=== PATIENT | female | born 1995 | race Caucasian/White ===

== ENCOUNTER → 2017-06-08 14:43 | Outpatient (CLI) | payer OTHER | END | disposition home or self-care (01) | LOC: D.US 14:43 | DX: N93.9 Abnormal uterine and vaginal bleeding, unspecified (principal) ==

== ENCOUNTER 2018-01-28 18:04 | Emergency (ER) | payer OTHER ==
[~2018-01-28] VITALS: Ht 154.9 cm; Wt 45.5 kg
[2018-01-28 18:13] VITALS: BP 144/94; Ht 154.9 cm; Wt 45.5 kg
[2018-01-28 18:43] LABS: APPEARANCE CLEAR (CLEAR); BILIRUBIN NEGATIVE (NEGATIVE); COLOR YELLOW (YELLOW); EPITHELIAL CELLS 0-5 /hpf (0-5); GLUCOSE NEGATIVE (NEGATIVE); HCG URINE NEGATIVE (NEGATIVE); KETONE NEGATIVE (NEGATIVE); NITRITE NEGATIVE (NEGATIVE); PROTEIN NEGATIVE (NEGATIVE); RED CELLS - URINE 0-5 /hpf (0-5); SPECIFIC GRAVITY 1.025 (1.005-1.020); UROBILINOGEN NORMAL (NORMAL); WHITE CELLS - URINE NSEEN /hpf (0-5)
[2018-01-28 19:10] LABS: BASOPHILS 0.3 % (0-2); EOSINOPHILS 0.6 % (0-7); HEMATOCRIT 37.4 % (36.0-48.0); HEMOGLOBIN 12.4 g/dL (12-16); IMMATURE GRANULOCYTES 0.1 % (0-5); LYMPHOCYTES 20.6 % (15-50); MCH 26.9 pg (26.0-34.0); MCHC 33.2 g/dL (31.0-37.0); MCV 81.1 fL (80.0-100.0); MEAN PLATELET VOLUME 9.7 fL (7.4-10.4); MONOCYTES 5.6 % (2-11); NEUTROPHILS 72.8 % (40-80); RBC 4.61 10x6/uL (4.00-5.40); RDW 13.3 % (11.5-14.5); WBC 9.4 10x3/uL (4.8-10.8)
[2018-01-28 19:11] LABS: PLATELET COUNT 183 10x3/uL (130-400)
[2018-01-28 19:18] LABS: CARBON DIOXIDE 27.5 mmol/L (21.0-32.0); CHLORIDE - SERUM 105 mmol/L (98-107); POTASSIUM - SERUM 3.7 mmol/L (3.5-5.1); SODIUM 141 mmol/L (136-145)
[2018-01-28 19:50] LABS: ALBUMIN 4.1 g/dL (3.4-5.0); ALKALINE PHOSPHATASE 49 U/L (46-116); ALT (SGPT) 16 U/L (10-68); BILIRUBIN - TOTAL 0.41 mg/dL (0.2-1.3); CALC OSMOLALITY 281 mosm/kg (275-300); CALCIUM 8.8 mg/dL (8.5-10.1); CREATININE - SERUM 0.8 mg/dL (0.6-1.3); GLUCOSE 90 mg/dL (74-106); PROTEIN - SERUM 7.6 g/dL (6.4-8.2); UREA NITROGEN 15 mg/dL (7-18); eGFR NON AFRICAN AMERICAN > 90 mL/min (90-120)
[2018-01-28] MEDS ORDERED: IBUPROFEN800 MG PO (20:00)
== END 2018-01-28 20:22 | disposition home or self-care (01) ==
LOC: D.ER 18:04
PROVIDERS: Emergency Medicine
DX: N94.6 Dysmenorrhea, unspecified (principal); N93.9 Abnormal uterine and vaginal bleeding, unspecified

== ENCOUNTER → 2020-04-25 13:52 | Outpatient (CLI) | payer OTHER ==
[2020-03-16 19:02] VITALS: BMI 20.8
[~2020-04-25 13:52] MED LIST: IBUPROFEN800 MG PO
== END | disposition home or self-care (01) ==
LOC: D.US 13:52
PROVIDERS: ATTEND Student in an Organized Health Care Education/Training Program
DX: I10 Essential (primary) hypertension (principal)

== ENCOUNTER → 2020-05-31 12:46 | Outpatient (CLI) | payer OTHER ==
[2020-03-16 19:02] VITALS: BMI 20.8
--- NOTE | 2020-06-01 17:14 | EC ---
PATIENT:RENEE SINGH DATE OF SERVICE: 05/31/20 SEX: F MEDICAL RECORD: [id number] DATE OF : [birth year] [facility] AGE OF PAT[facility]: 25 ADMISSION DATE: 05/31/20 REFERRING PHYSICIAN: INTERPRETING PHYSICIAN: LORETA APPIAH MD ECHOCARDIOGRAM REPORT ECHO CHARGES 4 ECHO COMPLETE Date: 05/31/20 CLINICAL DIAGNOSIS: PALPITATIONS/HEART MURMUR ECHOCARDIOGRAPHIC MEASUREMENTS (adult normal given) AC root (d.<3.7cm) 2.6 cm LV Septum d (<1.2 cm> 0.7 cm Valve Excursion 1.1 cm LV Septum (systole) 0.9 cm Left Atria (s.<4.0cm> 2.9 cm LVPW d(<1.2cm) 0.6 cm RV (d.<2.3cm) 3.5 cm LVPW (sytole) 1.8 cm LV diastole(<5.6CM) 4.7 cm MV E-F(>70mm/sec) cm LV systole 3.5 cm LVOT Diameter 1.7 cm MV exc.(>10mm) 1.3 cm Est.ejection fraction (50-75%) % DOPPLER: LVIT cm/sec A 69.0 cm/sec E 92.0 cm/sec LA cm/sec RVSP 25 mmHg LVOT 88 cm/sec AOP1/2T m/s Asc. Ao 118 cm/sec RVOT 93 cm/sec RA cm/sec PA 104 cm/sec AV Gradient Peak 5.53 mmHg AV Mean 2.91 mmHg AV Area 2.1 cm MV Gradient Peak 4.0 mmHg MV Mean 1.54 mmHg MV Area cm COMMENTS: Operations And Maintenance Specialist: 2 GODWIN SINHA Jewelry Manager: 3 Dr. Lockwood TAPE# PACS Pericardial Effusion N DATE OF SERVICE: FINDINGS: No LVH. LV internal dimension is normal. Wall motion is normal. EF is greater than or equal to 55%. Aortic valve is tricuspid. No evidence of stenosis by Doppler interrogation. Left atrium is normal. Mitral valve shows no prolapse. Physiologic MR. Right side is grossly normal. Physiologic TR. TRANSINT:[id number] Voice Confirmation ID: [id number] DOCUMENT ID: [id number] ECHOCARDIOGRAM REPORT [id number] ELSAQuitaRENEE Magdalena LORETA APPIAH MD at 1714 CC: [id number] DICTATION DATE: 06/01/20 1037 MANAGER TRAINEE: 06/01/20 1433 DEP CLI 05/31/20 [place] [id number] [facility] [place] [id number]
== END | disposition home or self-care (01) ==
LOC: D.HCCECHO 12:46
PROVIDERS: ATTEND Internal Medicine Interventional Cardiology
DX: R00.2 Palpitations (principal)